=== PATIENT | female | born 1995 | race Caucasian/White ===

== ENCOUNTER 2024-08-10 22:18 | Outpatient (CLI) | payer OTHER ==
[2024-08-10 22:36] LABS: Appearance,Urine Clear (Clear); Bilirubin,Urine Negative (Negative); Blood,Urine Negative (Negative); Color,Urine Light Yellow; Glucose,Urine (UA) Negative (Negative); Ketones,Urine 2+ (Negative); Leukocyte Esterase,Urine Negative (Negative); Nitrite,Urine Negative (Negative); PH, Urine 6.5 (5.0-8.0); Protein,Urine Negative (Negative); Specific Gravity,Urine 1.011 (1.001-1.035); Urobilinogen,Urine <2.0 mg/dL (<2.0)
[2024-08-10 23:09] VITALS: BP 115/64; PULSE 100; RESP 18
--- NOTE | 2024-08-29 02:25 | P.MSEPDOC ---
Presenting Problems - Arrival Data Date of Arrival on Unit: 08/10/24 Time of Arrival on Unit: 22:18 Mode of Transport: Ambulatory - Complaint OB-Reason for Admission/Chief Complaint: Pain Comment: PT DOM presents to triage with c/o abd pain throughout that is constant rates 8/0 that started yesterday at noon. Pt had n/v x1 this morning but resolved at present. Medical History - Information : 4 Para: 3 Term: 3 : 0 Abortions: Spontaneous or Elective: 0 Number of Living Children: 3 - Gestational Age Gestational Age by DOM (wks/days): 25 Weeks and 2 Days - History Complications: No Care Review of Systems - Review of Systems Constitutional: No problems Breast: No problems ENT: No problems Cardiovascular: No problems Respiratory: No problems Gastrointestinal: No problems Genitourinary: No problems Musculoskeletal: No problems Neurological: No problems Skin: No problems Vital Signs - Pulse Pulse Oximetery Pulse Rate: 100 Pulse Assessment Method: Pulse Oximetry - Respirations Respiratory Rate: 18 Oxygen Delivery Method: Room Air - Blood Pressure Right Arm Blood Pressure: 115/64 Blood Pressure Mean: 81 Blood Pressure Source: Automatic Cuff Medical Screen Scoring - Assessment - Baby A Baseline FHR: 150 Heart Rate - NICHD Category: Category I (Normal) Physician Notification - Physician Notified Physician Notified Date: 08/10/24 Physician Notified Time: 22:28 Physician: Liat Cristina Order Received: Yes - Notification Comment Comment: Dr. Josue on unit, report given, reviewed tracing. PT DOM presents to triage with c/o abd pain throughout that is constant rates 8/0 that started yesterday at noon. Pt had n/v x1 this morning but resolved at present. Abd soft non tender, no bleeding or leaking fluid. No cx on monitor, FHT from 140-175. Order to send UA but pt symptoms seem more viral. Wait for UA results and if clear pt to be d./c home and follow up with primary drDes Maternal Triage Index - Maternal Triage Index Presenting for scheduled procedure w/no complaint: No - Stat/Priority 1 Stat Priority 1: No - Urgent/Priority 2 Urgent Priority 2: No - Prompt/Priority 3 Prompt Priority 3: No - Non-Urgent/Priority 4 Non-Urgent Priority 4: Yes Criteria Met for Priority 4: PT DOM presents to triage with c/o abd pain throughout that is constant rates /0 that started yesterday at noon. Pt had n/v x1 this morning but resolved at present. Disposition - Disposition OB Disposition: Discharge to home Discharge Date: 08/10/24 Discharge Time: 22:50 I agree with the RN Medical Screening Exam: Yes Physician's MSE Comment: I have neither seen nor examined the patient. Case reviewed; plan agreed upon as documented in EMR&OBIX.: Yes Diagnosis: RELATED CONDITIONS, UNSPECIFIED, SECOND TRIMESTER
== END 2024-08-10 22:50 | disposition home or self-care (01) ==
LOC: FBPOP 22:18
PROVIDERS: ATTEND Obstetrics & Gynecology
CPT/HCPCS: 81003; 99213

== ENCOUNTER 2024-08-12 08:44 | Outpatient (CLI) | payer OTHER ==
[2024-08-12] MEDS: LACTATED RINGERS 2,000 ML IV ONE (09:59)
[2024-08-12 12:18] VITALS: BP 106/57; PULSE 104; RESP 16; TEMP 97.7
--- NOTE | 2024-08-29 02:29 | P.MSEPDOC ---
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 Review of Systems - Review of Systems Constitutional: No problems Breast: No problems ENT: No problems Cardiovascular: No problems Respiratory: No problems Gastrointestinal: No problems Genitourinary: No problems Musculoskeletal: No problems Neurological: No problems Skin: No problems Vital Signs - Temperature Temperature: 97.7 F Temperature Source: Temporal Artery Scan - Pulse Right Sitting Pulse Rate: 104 Pulse Assessment Method: Automatic Cuff - Respirations Respiratory Rate: 16 Oxygen Delivery Method: Room Air O2 Sat by Pulse Oximetry: 100 - Blood Pressure Right Arm Blood Pressure: 106/57 Blood Pressure Mean: 73 Blood Pressure Source: Automatic Cuff Medical Screen Scoring - Assessment - Baby A Baseline FHR: 160 Heart Rate - NICHD Category: Category I (Normal) Physician Notification - Physician Notified Physician Notified Date: 08/12/24 Physician Notified Time: 11:31 Physician: Ajay Juárez New Order Received: Yes (d/c, f/u in ER for further eval) Maternal Triage Index - Urgent/Priority 2 Urgent Priority 2: Yes Provider Notified: Ajay Juárez Provider Notified Time: 11:31 Criteria Met for Priority 2: reassuring fht for gestation, vitals wnl Disposition - Disposition OB Disposition: Transfer to other dept./facility Discharge Date: 08/12/24 Discharge Time: 11:45 I agree with the RN Medical Screening Exam: Yes Physician's MSE Comment: I have neither seen nor examined the patient. Case reviewed; plan agreed upon as documented in EMR&OBIX.: Yes Diagnosis: RELATED CONDITIONS, UNSPECIFIED, SECOND TRIMESTER
== END 2024-08-12 11:45 | disposition home or self-care (01) ==
LOC: FBPOP 08:44
PROVIDERS: ATTEND Obstetrics & Gynecology
CPT/HCPCS: 96361; 99214

== ENCOUNTER 2024-08-12 14:28 | Emergency (ER) | payer OTHER ==
--- NOTE | 2024-08-12 15:32 | ED ---
Abdominal Pain HPI - General Chief Complaint: Abdominal Pain Stated Complaint: Abd pain Time Seen by Provider: 08/12/24 15:04 Source: patient Mode of arrival: ambulatory Limitations: no limitations - History of Present Illness Initial Comments: This patient is a 29-year-old woman who complains of having diffuse abdominal pain going on since Friday. She initially thought that she had a stomach flu, as she states her kids had stomach pain and diarrhea. The patient did not have any diarrhea, in fact complaining of having no bowel movement for 3 to 4 days which is unusual for her. The patient had come here in the morning and was referred to the labor and delivery unit where she had monitoring. And then was sent back here for the abdominal pain evaluation. The patient states that she is approximately 25 weeks based on menstrual period and test. She has not had ultrasound. The patient has not had fevers or vomiting. She states that her appetite is not normal. No change in urination. No vaginal discharge or bleeding. MD Complaint: abdominal pain Onset/Timin -: days(s) Location: diffuse Radiation: none Migration to: no migration Severity: moderate Quality: other Consistency: constant Improves With: nothing Worsens With: nothing Associated Symptoms: constipation - Related Data LMP Date: 02/15/24 LMP (females 10-50): Patient : Yes Home Medications Medication Instructions Recorded Confirmed Vit No.179/Iron/Folic 1 tab PO DAILY 08/12/24 08/12/24 [ Tablet] Allergies Allergy/AdvReac Type Severity Reaction Status Date / Time No Known Allergies Allergy Verified 08/12/24 14:52 Review of Systems ROS Statement: Those systems with pertinent positive or pertinent negative responses have been documented in the HPI. ROS Other: All systems not noted in ROS Statement are negative. Past Medical History Past Medical History: No Reported History History of Any Multi-Drug Resistant Organisms: None Reported Past Surgical History: No Surgical Hx Reported Past Psychological History: No Psychological Hx Reported Smoking Status: Never smoker Past Alcohol Use History: None Reported Past Drug Use History: None Reported General Exam Limitations: no limitations Course Vital Signs 08/12/24 08/12/24 08/12/24 14:41 15:52 16:44 Temperature 99.3 F 98.7 F Pulse Rate 116 H 113 H 114 H Respiratory 20 24 17 Rate Blood Pressure 101/56 126/76 105/72 O2 Sat by Pulse 96 99 97 Oximetry 10/10/24 10/10/24 10/10/24 17:16 18:51 19:46 Temperature 99.8 F H Pulse Rate 112 H 107 H 113 H Respiratory 17 17 17 Rate Blood Pressure 89/66 101/91 94/53 O2 Sat by Pulse 93 L 97 96 Oximetry - Reevaluation(s) Reevaluation #1: 08/12/24 18:07 The patient does continue to have abdominal pain even after analgesic. The ultrasound of the abdomen does not reveal etiology. Given the patient's elevated white blood cell count, the abdominal tenderness, additional imaging is required. I did attempt to arrange MRI but they are no longer in the building. The patient therefore sent for CT scan of the abdomen. 08/12/24 18:38 Case is discussed with Dr. Juárez, he is in agreement since no MRI available, patient to have CT. Medical Decision Making - Medical Decision Making The patient had ultrasound that showed, per my interpretation, intrauterine with heart rate 165. The patient had ultrasound of the right lower quadrant that could not visualize the appendix due to overlying bowel gas. I did have discussion with the meter engineer and given the patient's clinical picture they believe additional imaging required. MRI unavailable, no staff. The patient is sent for CT scan which may show early appendicitis. The case is discussed with meter engineer and surgery and they believe that the patient should be at a facility with neonatology in case of delivery being precipitated by any surgical treatments. I discussed the case with patient and family they request nearest facility which would be [facility]. Case discussed with the transfer team there and with emergency physician Dr. Pak who will accept case for transfer. - Lab Data Result diagrams: 08/12/24 15:23 08/12/24 15:23 Lab Results 08/12/24 08/12/24 08/12/24 Range/Units 15:23 15:23 15:23 WBC 19.9 H (3.8-10.6) k/uL RBC 3.55 L (3.80-5.40) m/uL Hgb 11.1 L (11.4-16.0) gm/dL Hct 33.0 L (34.0-46.0) % MCV 93.0 (80.0-100.0) fL MCH 31.3 (25.0-35.0) pg MCHC 33.7 (31.0-37.0) g/dL RDW 12.7 (11.5-15.5) % Plt Count 228 (150-450) k/uL MPV 8.6 Neutrophils % 92 % Lymphocytes % 4 % Monocytes % 3 % Eosinophils % 0 % Basophils % 0 % Neutrophils # 18.2 H (1.3-7.7) k/uL Lymphocytes # 0.8 L (1.0-4.8) k/uL Monocytes # 0.6 (0-1.0) k/uL Eosinophils # 0.0 (0-0.7) k/uL Basophils # 0.0 (0-0.2) k/uL Sodium (137-145) mmol/L Potassium (3.5-5.1) mmol/L Chloride (98-107) mmol/L Carbon Dioxide (22-30) mmol/L Anion Gap mmol/L BUN (7-17) mg/dL Creatinine (0.52-1.04) mg/dL Est GFR (CKD-EPI)AfAm (>60 ml/min/1.73 sqM) Est GFR (CKD-EPI)NonAf (>60 ml/min/1.73 sqM) Glucose (74-99) mg/dL Calcium (8.4-10.2) mg/dL Total Bilirubin (0.2-1.3) mg/dL AST (14-36) U/L ALT (4-34) U/L Alkaline Phosphatase (38-126) U/L Total Protein (6.3-8.2) g/dL Albumin (3.5-5.0) g/dL Amylase (30-110) U/L Lipase (23-300) U/L Urine Color Light Yellow Urine Appearance Cloudy H (Clear) Urine pH 6.5 (5.0-8.0) Ur Specific [place] 1.011 (1.001-1.035) Urine Protein Negative (Negative) Urine Glucose (UA) Negative (Negative) Urine Ketones 4+ H (Negative) Urine Blood Negative (Negative) Urine Nitrite Negative (Negative) Urine Bilirubin Negative (Negative) Urine Urobilinogen <2.0 (<2.0) mg/dL Ur Leukocyte Esterase Trace H (Negative) Urine RBC 2 (0-5) /hpf Urine WBC 3 (0-5) /hpf Ur Squamous Epith Cells 14 H (0-4) /hpf Urine Bacteria Many H (None) /hpf Urine Mucus Rare H (None) /hpf Urine HCG, Qual Detected (Not Detectd) 08/12/24 Range/Units 15:23 WBC (3.8-10.6) k/uL RBC (3.80-5.40) m/uL Hgb (11.4-16.0) gm/dL Hct (34.0-46.0) % MCV (80.0-100.0) fL MCH (25.0-35.0) pg MCHC (31.0-37.0) g/dL RDW (11.5-15.5) % Plt Count (150-450) k/uL MPV Neutrophils % % Lymphocytes % % Monocytes % % Eosinophils % % Basophils % % Neutrophils # (1.3-7.7) k/uL Lymphocytes # (1.0-4.8) k/uL Monocytes # (0-1.0) k/uL Eosinophils # (0-0.7) k/uL Basophils # (0-0.2) k/uL Sodium 137 (137-145) mmol/L Potassium 3.8 (3.5-5.1) mmol/L Chloride 112 H (98-107) mmol/L Carbon Dioxide 17 L (22-30) mmol/L Anion Gap 8 mmol/L BUN <2 L (7-17) mg/dL Creatinine 0.33 L (0.52-1.04) mg/dL Est GFR (CKD-EPI)AfAm >90 (>60 ml/min/1.73 sqM) Est GFR (CKD-EPI)NonAf >90 (>60 ml/min/1.73 sqM) Glucose 92 (74-99) mg/dL Calcium 8.6 (8.4-10.2) mg/dL Total Bilirubin 1.1 (0.2-1.3) mg/dL AST 19 (14-36) U/L ALT 9 (4-34) U/L Alkaline Phosphatase 57 (38-126) U/L Total Protein 6.0 L (6.3-8.2) g/dL Albumin 3.3 L (3.5-5.0) g/dL Amylase 38 (30-110) U/L Lipase 20 L (23-300) U/L Urine Color Urine Appearance (Clear) Urine pH (5.0-8.0) Ur Specific [place] (1.001-1.035) Urine Protein (Negative) Urine Glucose (UA) (Negative) Urine Ketones (Negative) Urine Blood (Negative) Urine Nitrite (Negative) Urine Bilirubin (Negative) Urine Urobilinogen (<2.0) mg/dL Ur Leukocyte Esterase (Negative) Urine RBC (0-5) /hpf Urine WBC (0-5) /hpf Ur Squamous Epith Cells (0-4) /hpf Urine Bacteria (None) /hpf Urine Mucus (None) /hpf Urine HCG, Qual (Not Detectd) - EKG Data -: EKG Interpreted by Ut EKG shows normal: sinus rhythm, axis (Normal), intervals (Normal), QRS complexes ( normal), ST-T waves (Normal) Rate: tachycardia (Rate 105) Disposition Clinical Impression: Abdominal pain affecting Narrative: Suspected appendicitis Disposition: OTHER INSTITUTION NOT DEFINED Condition: Fair Is patient prescribed a controlled substance at d/c from ED?: No Referrals: None,Stated [Primary Care Provider] - 1-2 days - Out of Hospital Transfer - Req. Specs Out of Hospital Transfer - Requested Specifics: Other Emergency Center
[2024-08-12 15:47] LABS: Basophils % (A) 0 %; Eosinophils % (A) 0 %; HGB 11.1 gm/dL (11.4-16.0); Lymphocytes # (A) 0.8 k/uL (1.0-4.8); Lymphocytes % (A) 4 %; MCH 31.3 pg (25.0-35.0); MCHC 33.7 g/dL (31.0-37.0); Mean Platelet Volume 8.6; Monocytes # (A) 0.6 k/uL (0-1.0); Monocytes % (A) 3 %; Neutrophils # (A) 18.2 k/uL (1.3-7.7); Neutrophils % (A) 92 %; Platelet Count 228 k/uL (150-450); RBC 3.55 m/uL (3.80-5.40); RDW 12.7 % (11.5-15.5); WBC 19.9 k/uL (3.8-10.6)
[2024-08-12] MEDS: ACETAMINOPHEN TAB 325 MG TAB PO STA (15:51)
[2024-08-12] MEDS: SODIUM CHLORIDE 0.9% 1,000 ML IV ONE ×2 (15:52→19:02)
[2024-08-12 16:09] LABS: ALT 9 U/L (4-34); AST 19 U/L (14-36); African American GFR (CKD) >90 (>60 ml/min/1.73 sqM); Albumin 3.3 g/dL (3.5-5.0); Alkaline Phosphatase 57 U/L (38-126); Amylase 38 U/L (30-110); Anion Gap 8 mmol/L; Blood Urea Nitrogen <2 mg/dL (7-17); Calcium 8.6 mg/dL (8.4-10.2); Carbon Dioxide 17 mmol/L (22-30); Chloride 112 mmol/L (98-107); Glucose 92 mg/dL (74-99); Lipase 20 U/L (23-300); Non-African American GFR(CKD) >90 (>60 ml/min/1.73 sqM); Potassium 3.8 mmol/L (3.5-5.1); Sodium 137 mmol/L (137-145); Total Bilirubin 1.1 mg/dL (0.2-1.3)
[2024-08-12 16:30] LABS: Appearance,Urine Cloudy (Clear); Bacteria,Urine Many /hpf; Bilirubin,Urine Negative (Negative); Blood,Urine Negative (Negative); Color,Urine Light Yellow; Glucose,Urine (UA) Negative (Negative); Ketones,Urine 4+ (Negative); Leukocyte Esterase,Urine Trace (Negative); Mucus,Urine Rare /hpf; Nitrite,Urine Negative (Negative); PH, Urine 6.5 (5.0-8.0); Protein,Urine Negative (Negative); RBC,Urine 2 /hpf (0-5); Specific Gravity,Urine 1.011 (1.001-1.035); Squamous Epithelial Cell,Urine 14 /hpf (0-4); Urobilinogen,Urine <2.0 mg/dL (<2.0); WBC,Urine 3 /hpf (0-5)
[2024-08-12] MEDS: MORPHINE SULFATE 4 MG/ML SYRINGE IV STA ×2 (16:49→19:03)
--- NOTE | 2024-08-12 17:18 | US ---
EXAMINATION TYPE: US OB >= 14 wk fetus DATE OF EXAM: 08/12/2024 COMPARISON: None CLINICAL INDICATION: Female, 29 years old with history of with pain, no prev US; pain TECHNIQUE: Transabdominal (TA) FINDINGS: GESTATIONAL AGE / DATING Physician Established: (25weeks/4 days) EDC: 11/21/2024 Dates by LMP: (25weeks/4 days) EDC: 11/21/2024 Dates by First Scan: No previous this is first scan Dates by Current Scan: (27weeks/1 days) EDC: 11/10/2024 SURVEY IUP: Single PLACENTA: Anterior PREVIA: No Previa AL: 16.74cm CERVICAL LENGTH (transabdominal: norm > 3.0cm): 3.2 cm BIOMETRY PRESENTATION: Vertex LIE: Longitudinal BPD: 6.92 cm 27weeks / 6 days HC: 25.57 cm 27weeks / 6 days AC: 22.56 cm 27weeks / 0 days FL: 4.69 cm 25wks / 5 days ESTIMATED WEIGHT IN GRAMS:961 grams ESTIMATED WEIGHT IN LBS/OZ: 2 lbs. 2 oz. WEIGHT PERCENTAGE BASED ON ESTABLISHED DATES: 83% HC/AC: 1.13 cm Normal FL/AC: 21%Normal HEART RATE: 165pm RHYTHM: Normal IMPRESSION: 1. Single live intrauterine with estimated gestational age of 25 weeks 4 days by LMP. Curre nt ultrasound biometry is slightly larger at 27 weeks 1 day placing the child at the 83rd percentile for weight. Follow-up growth as clinically indicated. 2. Normal AL. Anterior placenta without previa. Cephalic presentation. [facility], , 08/12/2024 5:15 PM
--- NOTE | 2024-08-12 17:19 | US ---
EXAMINATION TYPE: US abdomen APPY DATE OF EXAM: 08/12/2024 COMPARISON: NONE CLINICAL INDICATION: Female, 29 years old with history of pain, ; Pain TECHNIQUE: Multiple sonographic images of the right lower quadrant were obtained with graded compress ion with grayscale and color Doppler imaging. FINDINGS: APPENDIX Is the appendix seen in its entirety from the proximal cecum to distal end: no Is the appendix compressible: N/A Does the appendix wall appear hypervascular: no Is an appendicolith present: no Is there inflammatory changes or free fluid present: no COUNTRY MANAGER NOTES: Appendix not well visualized due to bowel gas. IMPRESSION: Unable to clearly delineate the appendix for assessment. Further clinical correlation will be needed. [facility], , 08/12/2024 5:16 PM
[2024-08-12 18:54] VITALS: TEMP 99.8
--- NOTE | 2024-08-12 18:58 | CT ---
EXAMINATION TYPE: CT abdomen pelvis wo con DATE OF EXAM: 08/12/2024 COMPARISON: None HISTORY: 26 weeks , LLQ abdominal pain, high WBC CT DLP: 687.1 mGycm. Automated exposure control for dose reduction was used. TECHNIQUE: Contiguous axial scanning of the abdomen and pelvis without IV contrast. Coronal and sagit will reconstructions performed. FINDINGS: Heart normal size without pericardial effusion. Prominent patchy groundglass posterior lung bases sug gestive of atelectasis. No pleural effusion. Spleen mildly enlarged at 14.4 cm. Liver enlarged at 19.5 cm. Gallbladder borderline hydropic at 4.1 cm wide. Prominent liquid stool throughout the right side of the colon in particular. There appears to be some trace ascites fluid along the left paracolic gutter. No free air seen. Incid ental 1.6 cm small bowel lipoma in the left side of the abdomen. Regional glands and left kidney within normal limits. Mild hydronephrosis right kidney probably a function of the patient's . Gravid uterus. Segments of the appendix are visualized. Some air and density is present within, axial images [id number] ( able to exclude any abnormal thickening as we measured caliber up to 1 cm, refer to coronal images 54 and 55. There prominent fluid-filled small bowel loops are present throughout the abdomen as well, s ome loops in the left side of the abdomen distended up to 3.4 cm Rounded uterus. Bladder partially distended. Trace pelvic free fluid. Bones: No osseous destructive process. IMPRESSION: 1. There is trace free fluid along the left pericolic gutter and within the pelvis. 2. Prominent fluid-filled small bowel loops throughout, some loops mildly dilated up to 3.4 cm. Edu tional prominent fluid within the right side of the colon. Findings may reflect a generalized ileus v ersus an enteritis. 3. Some portions of the appendix are visualized containing foci of air but other portions appear thi ckened measuring up to 1 cm. Refer to coronal images 54 and 55 for example. Unable to exclude mild ac ousmane appendicitis. Further clinical correlation will be needed. Lack of contrast and crowding of struc tures limits assessment. [facility], , 08/12/2024 6:56 PM
[2024-08-12] MEDS: MORPHINE SULFATE 2 MG/ML SYRINGE IVP STA (20:41)
[2024-08-12 20:48] VITALS: BP 105/55; PULSE 119; RESP 16
== END 2024-08-12 20:58 | disposition other institution (70) ==
LOC: EC 14:28
CPT/HCPCS: 36415; 74176; 76705; 76805; 80053; 81001; 81025; 82150; 83690; 85025; 96361; 96374; 96376; 99285